=== PATIENT | female | born 1950 | race Caucasian/White ===

== ENCOUNTER → 2017-02-02 | Outpatient (CLI) | payer OTHER, MEDICARE ==
[~2017-02-02] MED LIST: ESTR42.5V VAGINAL; HYDR-2768 PO; HYDR12.57 PO; METO50 PO; METO50TA PO; Percocet
[2017-02-02 10:44] LABS: AUTOMATED NEUTROPHIL # 4.6 TH/MM3 (1.8-7.7); BASOPHIL # 0.1 TH/MM3 (0-0.2); BASOPHIL % 0.8 % (0.0-2.0); EOSINOPHIL # 0.1 TH/MM3 (0-0.4); HEMATOCRIT 38.5 % (35.0-46.0); HEMO FLAGS DIFF FINAL; LYMPH % 23.7 % (9.0-44.0); LYMPHOCYTE # 1.7 TH/MM3 (1.0-4.8); MEAN CELL VOLUME 91.2 FL (80.0-100.0); MEAN CORPUSCULAR HEMOGLOBIN 30.8 PG (27.0-34.0); MEAN CORPUSCULAR HGB CONC 33.7 % (32.0-36.0); MONO % 7.3 % (0.0-8.0); NEUT % 66.2 % (16.0-70.0); PLATELET COUNT 265 TH/MM3 (150-450); RED BLOOD COUNT 4.22 MIL/MM3 (4.00-5.30); RED CELL DISTRIBUTION WIDTH 13.1 % (11.6-17.2)
[2017-02-02 10:46] LABS: BACTERIA, URINE RARE /hpf; BLOOD, URINE TRACE (NEG); GLUCOSE,URINE NEG (NEG); KETONE, URINE NEG (NEG); MUCUS URINE FEW /lpf (OCC); NITRITE,URINE NEG (NEG); SQUAMOUS EPITHELIAL CELL URINE 25 /hpf (0-5); URINE COLOR YELLOW (YELLW/STRAW)
[2017-02-02 11:14] LABS: BICARBONATE 30.6 MEQ/L (21.0-32.0); POTASSIUM 3.8 MEQ/L (3.5-5.1)
--- NOTE | 2017-02-03 20:11 | EKG ---
Date Performed: 02/02/2017 Time Performed: 10:16:06 PTAGE: 66 years EKG: SINUS BRADYCARDIA INCOMPLETE RIGHT BUNDLE BRANCH BLOCK BORDERLINE ECG Compared to the PREVIOUS TRACING from 10/10/13, no significant change DOCTOR: Kyle Grimes Interpretating Date/Time 02/03/2017 20:11:09
== END ==
LOC: CPRE 09:29
PROVIDERS: ATTEND Obstetrics & Gynecology
DX: Z01.810 Encounter for preprocedural cardiovascular examination (principal); Z01.812 Encounter for preprocedural laboratory examination; R94.31 Abnormal electrocardiogram [ECG] [EKG]
CPT/HCPCS: 36415; 80048; 81001; 85025; 86850; 86900; 86901; 93005

== ENCOUNTER 2017-02-04 05:27 | Observation (INO) | payer MEDICARE, OTHER ==
--- NOTE | 2017-02-02 10:33 | MH ---
cc: KAYLIE LEBRON DATE OF ADMISSION 02/04/2017 DATE OF 1950 SCHEDULED PROCEDURES Laparoscopic bilateral salpingo-oophorectomy INDICATIONS Right complex ovarian cyst noted incidentally on CT. HISTORY OF PRESENT ILLNESS The patient is a 66-year-old white female para 1 status post distant hysterectomy who incidentally was found to have on November [address] scan a right adnexal mass 4 x 2.5 x 1.9, although it is small, there is some blood flow and it was felt that this needed to be removed. The CT was for gastroenteritis that was persisting and I think this was incidental. She has no problems now with her bowels or bladder. She does have minimal stress incontinence. She has had no recent upper respiratory tract infections. She does not smoke or drink or use illicit drugs. PAST MEDICAL HISTORY Her medical history is significant for elevated blood pressure PAST SURGICAL HISTORY Her surgical history: 1. Vaginal hysterectomy 2. She has had a pelvic mesh inserted in 2003. 3. Prior to that, she had a tubal ligation. STUDIES She is up-to-date on mammogram and other screening. PHYSICAL EXAM She is a slim white female in no acute distress. Her BMI is 22.7. Her weight is 124, blood pressures 122/60. NECK: She has no thyromegaly. LUNGS: Her lungs are clear to auscultation. HEART: Her heart rate and rhythm are regular without murmur, heave or thrills. BREASTS: Without dominant mass, nipple discharge, skin retraction or adenopathy. ABDOMEN: Benign. She has no hepatosplenomegaly or CVA tenderness, fluid wave or any masses or hernias. PELVIC: On pelvic exam, the perineum is mildly atrophic. Vault is elevated. There is no erosion of mesh. Cyst is not palpable on bimanual exam. Guaiac is negative. IMPRESSION Incidental right ovarian mass noted on CT scan that has some worrisome features and she desires to have it removed. We will remove the other ovary at the same time. The risks, benefits, expectations have been reviewed in detail. She has signed consents and is scheduled for . Kaylie Lebron MD PPC/WING /10:04 AM /10:20 AM
[~2017-02-04] VITALS: Ht 157.5 cm; Wt 54.6 kg
[~2017-02-04 05:27] MED LIST changes: -HYDR-2768 PO; -METO50 PO
[2017-02-04] MEDS ORDERED: METOPROLOL TARTRATE 25 MG TAB PO PRN (05:45)
[2017-02-04] MEDS ORDERED: CHLORHEXIDINE GLUCONATE 2 % 1 PACK (2 CLOTHS) TOPICAL PRN (05:45)
[2017-02-04] MEDS ORDERED: POVIDONE IODINE 5% (ANTISEPSIS KIT) 4 APPLICATIONS EACH NARE PRN (05:45)
[2017-02-04] MEDS ORDERED: INSULIN HUMAN REGULAR 1,000 UNITS/10 ML VIAL SQ PRN (05:45)
[2017-02-04] MEDS ORDERED: SODIUM CHLORID 0.9% 500 ML IV PRN (05:45)
[2017-02-04] MEDS ORDERED: LACTATED RINGER'S 1000 ML IV PRN (05:45)
[2017-02-04] MEDS ORDERED: [UNRECOGNIZED DRUG - REMARK] SCH (05:45)
[2017-02-04 06:27] VITALS: BP 123/73; PULSE 62; RESP 18; TEMP 98.3; O2SAT 98
--- NOTE | 2017-02-04 06:31 | RADRPT ---
EXAM DATE/TIME: 02/04/2017 06:09 [facility] COMPARISON: No previous studies available for comparison. INDICATIONS : Evaluate for pneumonia, pneumothorax or communicable disease. Pre op gynocological surgery. MEDICAL HISTORY : None. SURGICAL HISTORY : None. ENCOUNTER: Initial ACUITY: 1 day PAIN SCORE: 0/10 LOCATION: Bilateral chest FINDINGS: A single view of the chest demonstrates the lungs to be symmetrically aerated without evidence of mas s, infiltrate or effusion. The cardiomediastinal contours are unremarkable. Osseous structures are intact. CONCLUSION: Normal examination except for minimal atelectasis left lung base. Craig Santos MD on February 04, 2017 at 6:30 Board Certified Radiologist. This report was verified electronically.
[2017-02-04] MEDS ORDERED: CLINDAMYCIN PHOS 600 MG/4 ML VIAL ONE (06:46)
[2017-02-04] MEDS ORDERED: SODIUM CHLORIDE 0.9% INJ 100 ML ONE (06:46)
[2017-02-04] MEDS ORDERED: BUPIVACAINE/EPINEPHRINE 0.5% PF 30 ML VIAL ONE (06:50)
[2017-02-04] MEDS ORDERED: FAMOTIDINE 20 MG/2 ML VIAL ONE (07:13)
[2017-02-04] MEDS ORDERED: DEXAMETHASONE SOD PHOS 4 MG/ML VIAL ONE (07:13)
[2017-02-04] MEDS ORDERED: APREPITANT 40 MG CAP ONE (07:13)
[2017-02-04] MEDS ORDERED: CLINDAMYCIN 600 MG/NS 100 ML IV SCH ×2 (07:15)
[2017-02-04] MEDS ORDERED: MIDAZOLAM HCL 2 MG/2 ML VIAL ONE (07:16)
[2017-02-04] MEDS ORDERED: SCOPOLAMINE 1.5 MG PATCH ONE (07:17)
[2017-02-04] MEDS ORDERED: FLUORESCEIN SOD 10% SOLN 500 MG/5 ML AMP ONE (08:38)
[2017-02-04] MEDS ORDERED: fentaNYL CITRATE 250 MCG/5 ML AMP ONE (09:17)
[2017-02-04] MEDS ORDERED: ONDANSETRON HCL 4 MG/2 ML VIAL IV PUSH PRN (10:00)
[2017-02-04] MEDS ORDERED: ACETAMINOPHEN/HYDROcodone 325 MG/5 MG TAB PO PRN (10:00)
[2017-02-04] MEDS ORDERED: MEPERIDINE HCL 25 MG/ML VIAL IM PRN (10:00)
[2017-02-04] MEDS ORDERED: *morphine SULFATE 8 MG/ML PERIprocedure ONLY ONE (10:12)
[2017-02-04 11:00] VITALS: BP 132/63; PULSE 63; RESP 20; TEMP 97.4; O2SAT 97
--- NOTE | 2017-02-04 13:58 | MP ---
cc: KAYLIE LEBRON DATE OF SURGERY: 02/04/2017 PREOPERATIVE DIAGNOSIS Incidental left ovarian mass found on CT scan for GI distress. It had some non-reassuring features and she wanted to have this evaluated laparoscopically. She was scheduled for a BSO. POSTOPERATIVE DIAGNOSIS Fairly normal looking ovaries but some significant pelvic adhesions that may have mimicked a cystic mass on the left. PROCEDURE Laparoscopic bilateral salpingo-oophorectomy with left retroperitoneal dissection, lysis of pelvic adhesions, cystoscopy SURGEON Gian [employer] [facility] Cole IV FINDINGS Examination under anesthesia revealed a well-elevated cuff and small ovaries were palpable. She is very slim. On entering the peritoneal cavity the liver edge and gallbladder seem normal. There was a small nodule above the liver on the anterior abdominal wall and a core was taken of it. The pelvis had adhesions of epiploica and bowel to the cuffed cul-de-sac and to the left adnexa. Once these were lysed and the adnexa was from the bowel and the bowel moved away, a retroperitoneal dissection on that side freed it from other structures and the ovary was removed without incident and placed in the cul-de-sac. The right ovary was treated the same and then they were both removed through an EndoCatch. ESTIMATED BLOOD LOSS Negligible. COUNTS Sponge, instrument and needle counts were correct. CONDITION She tolerated the procedure well and went to Recovery stable. She also had a cystourethroscopy to prove no ureteral compromise. Fluorescein was used and she had excellent GFR with quick flow from both ureteral orifices and normal bladder contours. DETAILS OF PROCEDURE She was identified in the pre-op. Her permit was reviewed with her. She was given clindamycin as she had a penicillin allergy. She was taken to the OR, placed under general endotracheal anesthesia in lithotomy position. A timeout was performed with everybody in attendance. A Mccain catheter was placed at the time of the exam under anesthesia. Attention was directed to the abdomen and a 5 mm incision was made in the umbilicus after Marcaine with epinephrine, and then a 5 mm trocar and sleeve placed under direct visualization. Assuring adequate placement 2 liters of CO2 were instilled. A right 5 mm incision and a left 12 mm incision were made, instilled with Marcaine and placed under direct visualization. The pneumoperitoneum was maintained while systematic evaluation of the abdominal and pelvic contents was performed. Lysis of adhesions and removal of epiploica and bowel from the cul-de-sac was done with the Harmonic with care to avoid energy reaching any bowel structures. Then the ovary on the left side was placed on gentle tension and a retroperitoneal dissection down to separate it from the sidewall. The infundibulopelvic ligament was transected and then the ovary was just dug out of the sidewall and put in the cul-de-sac. The right ovary was not as imbedded in and really did not require retroperitoneal dissection. The fimbria was placed on gentle traction. The infundibulopelvic ligament was transected and then the ovary was dug out of the sidewall but far away from the ureter. Both were then placed in an EndoCatch placed in the left lower quadrant incision and removed intact. Irrigation was then performed. The sidewalls were noted to be hemostatic. The fluid was then suctioned up and the area on the left was evaluated carefully as the pneumoperitoneum was released. The Mccain catheter was removed and a Josselyn was used to fill the bladder with 250 cc. The laparoscope was placed in the bladder. She had been given fluorescein and had immediate flow of copious urine from both ureteral orifices. The bladder appeared normal with no iatrogenic or intrinsic pathology. The Mccain catheter was replaced. The fascia was closed in the left lower quadrant and then the skin was closed superficially with Monocryl. She was placed in dorsal supine position, awoken and taken to the recovery room stable. MD SAW Church/DIPTI /8:59 AM /1:37 PM LUAN
[2017-02-04] MEDS ORDERED: PROPOFOL 200 MG/20 ML AMP IV ONE (14:08)
[2017-02-04] MEDS ORDERED: NEOSTIGMINE 3 MG/3 ML SYR IV ONE (14:08)
[2017-02-04] MEDS ORDERED: ePHEDrine/NS 25 MG/5 ML SYR IV ONE (14:08)
[2017-02-04] MEDS ORDERED: LACTATED RINGER'S 1000 ML INJ 1,000 ML IV ONE (14:09)
[2017-02-04] MEDS ORDERED: ONDANSETRON HCL 4 MG/2 ML VIAL IV PUSH ONE (14:09)
[2017-02-04] MEDS ORDERED: METOPROLOL TARTRATE 50 MG TAB PO PRN (15:00)
[2017-02-04 15:50] VITALS: BP 128/64; PULSE 96; RESP 20; TEMP 96.2; O2SAT 97
[2017-02-04] MEDS ORDERED: PROMETHAZINE HCL 25 MG TAB PO PRN (16:00)
--- NOTE | 2017-02-04 16:46 | PD.OP ---
Operative Report Date of Surgery: Feb 04, 2017 Preoperative Diagnosis: small left complex adnexal mass with flow Postoperative Diagnosis: pelvic adhesive disease Procedure: Laparsocopic BSO Left retroperitoneal dissection cystoscopy Anesthesia: get Surgeon: Bhavna Springer Earth Burner(s): RJ bidr Operation and Findings: Bhavna Arita MD Feb 04, 2017 16:46
[2017-02-04 20:00] VITALS: BP 124/61; PULSE 93; RESP 20; TEMP 97.1; O2SAT 97
[2017-02-05] VITALS: BP_SYST 114; BP_SYST 59; BP_DIAS 59; PULSE 74; RESP 20; TEMP 97.3; O2SAT 97
[2017-02-05 04:00] VITALS: BP 131/63; PULSE 68; RESP 20; TEMP 97.2; O2SAT 97
[2017-02-05 08:00] VITALS: BP 146/67; PULSE 78; RESP 18; TEMP 97.7; O2SAT 97
--- NOTE | 2017-02-05 08:30 | HHI.DCPOC ---
Discharge Care Plan Report Symptoms to Your Doctor -Temperature above 100.5 degrees -Redness, of incision or excessive or foul smelling drainage -Unusual pain or calf pain -Increased vaginal bleeding -Painful or difficulty urinating -Feelings of extreme sadness or anxiety after 2 weeks Goals to Promote Your Health * To prevent worsening of your condition and complications * To maintain your health at the optimal level Directions to Meet Your Goals Take your medications as prescribed Follow your dietary instruction Follow activity as directed Ensure plenty of rest for recovery Drink fluids for hydration Keep your appointments as scheduled Take your immunizations and boosters as scheduled If your symptoms worsen call your PCP, if no PCP go to Urgent Care Center or Emergency Room Smoking is Dangerous to Your Health. Avoid second hand smoke Call the 24-hour crisis hotline for domestic abuse at Bhavna Springer MD Feb 05, 2017 08:29
== END 2017-02-05 11:37 | disposition home or self-care (01) ==
LOC: HSDC 05:27 → HOCA 10:53
PROVIDERS: ADMIT Obstetrics & Gynecology; ATTEND Obstetrics & Gynecology
DX: D3A.098 Benign carcinoid tumors of other sites (principal); N73.6 Female pelvic peritoneal adhesions (postinfective); N83.8 Other noninflammatory disorders of ovary, fallopian tube and broad ligament; I10 Essential (primary) hypertension; Z90.710 Acquired absence of both cervix and uterus; Z88.0 Allergy status to penicillin; Z88.5 Allergy status to narcotic agent
CPT/HCPCS: 58661; 71010; 88307; 88341; 88342; 94150; 96374; G0378; J1100; J2250; J2270; J2405; J2710; J3010; J7120; J8501; Q0169; 88305